=== PATIENT | male | born 1975 | race Caucasian/White ===

== ENCOUNTER 2017-02-11 22:04 | Emergency (ER) | payer MEDICAID ==
[2017-02-11] MEDS: HYDROCODONE/APAP (5/325) TAB PO (23:36)
[2017-02-11] MEDS: TRIMETHOPRIM/SULFAMETHOX (DS) TAB PO (23:36)
[2017-02-11] MEDS: CEPHALEXIN 500 MG CAP PO (23:36)
[2017-02-11] MEDS: LIDOCAINE 1%/EPI 30 ML INJ INJ (23:37)
== END 2017-02-12 00:33 | disposition home or self-care (01) ==
LOC: FTE 02-12 00:33
DX: L02.413 Cutaneous abscess of right upper limb (principal); L03.113 Cellulitis of right upper limb; J45.909 Unspecified asthma, uncomplicated
CPT/HCPCS: 10060; 99284-25

== ENCOUNTER 2017-03-24 18:52 | Emergency (ER) | payer OTHER, MEDICAID ==
[2017-03-24] MEDS: METHYLPREDNISOLONE 125 MG INJ IM (20:39)
[2017-03-24] MEDS: ALBUTEROL 0.083% (NEB) 2.5 MG/3 ML AMP NEB (20:55)
== END 2017-03-24 22:36 | disposition left against medical advice (07) ==
LOC: FTE 22:36
DX: J45.901 Unspecified asthma with (acute) exacerbation (principal)
CPT/HCPCS: 94664; 96372; 99284-25

== ENCOUNTER 2017-08-21 10:53 | Emergency (ER) | payer OTHER ==
[2017-08-21] MEDS: IPRATROPIUM (NEB) 0.5 MG/2.5 ML AMP NEB (11:10)
[2017-08-21] MEDS: ALBUTEROL 0.083% (NEB) 2.5 MG/3 ML AMP NEB (11:11)
[2017-08-21] MEDS: DEXAMETHASONE 10 MG/ML 1 ML INJ IM (11:27)
== END 2017-08-21 12:49 | disposition home or self-care (01) ==
LOC: E/R 10:53
DX: J45.21 Mild intermittent asthma with (acute) exacerbation (principal)
CPT/HCPCS: 94640; 94664; 96372; 99284-25

== ENCOUNTER 2017-12-24 19:48 | Emergency (ER) | payer SELFPAY, OTHER | END 2017-12-24 22:00 | disposition left against medical advice (07) | LOC: E/R 19:48 | DX: Z53.21 Procedure and treatment not carried out due to patient leaving prior to being seen by health care provider (principal) ==